=== PATIENT | male | born 1945 | race Caucasian/White ===

== ENCOUNTER → 2016-12-16 | Outpatient (CLI) | payer MEDICARE ==
[~2016-12-16] MED LIST: AUGMENTIN 875 M1 TAB PO; CLARITIN10 MG PO; DOXYCYCLINE100 M3 PO; PREDNISONE10 MG PO
[2016-12-16 08:58] LABS: BUN 23 mg/dl (7-24); CARBON DIOXIDE 30 mmol/L (21-32); CHLORIDE 105 mmol/L (98-107); CHOLESTEROL 159 mg/dL (<200); CPK 123 U/L (39-308); EST GLOM FILT AFRICAN AMERICAN > 60 ml/min; GLUCOSE 94 mg/dL (65-99); HDL CHOLESTEROL 45 mg/dl (40-60); LDL CHOLESTEROL 73 mg/dL (9-159); POTASSIUM 3.9 mmol/L (3.5-5.1); SODIUM 143 mmol/L (136-145); TRIGLYCERIDES 207 mg/dl (<150); VLDL CHOLESTEROL 41 mg/dL (6-40)
== END | disposition home or self-care (01) ==
LOC: LAB 07:37
PROVIDERS: Family Medicine
DX: I10 Essential (primary) hypertension (principal)

== ENCOUNTER → 2017-12-28 | Outpatient (CLI) | payer MEDICARE ==
[2017-12-28 08:25] LABS: BUN 22 mg/dl (7-24); CHLORIDE 104 mmol/L (98-107); CHOLESTEROL 159 mg/dL (<200); CREATININE 1.08 mg/dL (0.70-1.30); HDL CHOLESTEROL 40 mg/dl (40-60); LDL CHOLESTEROL 64 mg/dL (9-159); POTASSIUM 3.9 mmol/L (3.5-5.1); SODIUM 143 mmol/L (136-145); TRIGLYCERIDES 277 mg/dl (<150); VLDL CHOLESTEROL 55 mg/dL (6-40)
== END | disposition home or self-care (01) ==
LOC: LAB 07:42
PROVIDERS: Family Medicine
DX: I10 Essential (primary) hypertension (principal)

== ENCOUNTER 2018-01-22 09:58 | Emergency (ER) | payer MEDICARE ==
[~2018-01-22] VITALS: Wt 95.3 kg
[2018-01-22 09:58] VITALS: BP 164/81
[2018-01-22] MEDS ORDERED: MONTELUKAST SOD10 MG PO (10:01)
[2018-01-22] MEDS ORDERED: TRIAMTERENE-HC1 EACH PO (10:01)
[2018-01-22] MEDS ORDERED: FLOVENT DISKU250 MCG INH (10:02)
[2018-01-22] MEDS ORDERED: VIBRAMYCIN100 MG PO (10:13)
== END 2018-01-22 10:30 | disposition home or self-care (01) ==
LOC: ED 09:58
DX: S30.862A Insect bite (nonvenomous) of penis, initial encounter (principal); Z79.899 Other long term (current) drug therapy; Z88.2 Allergy status to sulfonamides; Z88.1 Allergy status to other antibiotic agents; W57.XXXA Bitten or stung by nonvenomous insect and other nonvenomous arthropods, initial encounter; Y93.89 Activity, other specified; Y92.89 Other specified places as the place of occurrence of the external cause; Y99.8 Other external cause status

== ENCOUNTER → 2018-11-29 | Outpatient (CLI) | payer MEDICARE ==
[~2018-11-29] MED LIST changes: +FLOVENT DISKU250 MCG INH; +MONTELUKAST SOD10 MG PO; +TRIAMTERENE-HC1 EACH PO; +VIBRAMYCIN100 MG PO
[2018-11-29 08:39] LABS: BUN 25 mg/dl (7-24); CHLORIDE 107 mmol/L (98-107); CHOLESTEROL 158 mg/dL (<200); CREATININE 1.13 mg/dL (0.70-1.30); POTASSIUM 3.6 mmol/L (3.5-5.1); SODIUM 142 mmol/L (136-145); TRIGLYCERIDES 180 mg/dl (<150); VLDL CHOLESTEROL 36 mg/dL (6-40)
[2018-11-29 08:40] LABS: HDL CHOLESTEROL 43 mg/dl (40-60); LDL CHOLESTEROL 79 mg/dL (9-159)
== END | disposition home or self-care (01) ==
LOC: LAB 07:35
PROVIDERS: Family Medicine
DX: I10 Essential (primary) hypertension (principal)

== ENCOUNTER → 2020-03-25 | Outpatient (CLI) | payer MEDICARE | END | disposition home or self-care (01) | LOC: LAB 09:02 | DX: N52.9 Male erectile dysfunction, unspecified (principal) ==

== ENCOUNTER → 2020-04-04 | Outpatient (CLI) | payer MEDICARE | END | disposition home or self-care (01) | LOC: LAB 08:53 | PROVIDERS: ATTEND Nurse Practitioner Family | DX: F52.21 Male erectile disorder (principal) ==

== ENCOUNTER → 2020-05-27 | Outpatient (CLI) | payer MEDICARE ==
[2020-05-27 09:03] LABS: BUN 18 mg/dl (7-24); CHLORIDE 106 mmol/L (98-107); CHOLESTEROL 177 mg/dL (<200); CREATININE 1.03 mg/dL (0.70-1.30); POTASSIUM 3.7 mmol/L (3.5-5.1); SODIUM 142 mmol/L (136-145); TRIGLYCERIDES 270 mg/dl (<150); VLDL CHOLESTEROL 54 mg/dL (6-40)
[2020-05-27 09:04] LABS: HDL CHOLESTEROL 42 mg/dl (40-60); LDL CHOLESTEROL 81 mg/dL (9-159)
== END | disposition home or self-care (01) ==
LOC: LAB 00:29
PROVIDERS: ATTEND Family Medicine
DX: I10 Essential (primary) hypertension (principal); E78.2 Mixed hyperlipidemia; R73.03 Prediabetes

== ENCOUNTER → 2020-12-18 | Outpatient (CLI) | payer MEDICARE ==
[2020-12-18 08:57] LABS: BUN 19 mg/dl (7-24); CHLORIDE 107 mmol/L (98-107); CHOLESTEROL 186 mg/dL (<200); CREATININE 1.06 mg/dL (0.70-1.30); LDL CHOLESTEROL 91 mg/dL (9-159); POTASSIUM 3.7 mmol/L (3.5-5.1); SODIUM 141 mmol/L (136-145); TRIGLYCERIDES 262 mg/dl (<150)
== END | disposition home or self-care (01) ==
LOC: LAB 08:00
PROVIDERS: ATTEND Family Medicine
DX: Z12.5 Encounter for screening for malignant neoplasm of prostate (principal); I10 Essential (primary) hypertension; E78.2 Mixed hyperlipidemia

== ENCOUNTER → 2021-04-07 | Outpatient (CLI) | payer MEDICARE | END | disposition home or self-care (01) | LOC: LAB 08:00 | PROVIDERS: ATTEND Nurse Practitioner Family | DX: M25.50 Pain in unspecified joint (principal); W57.XXXA Bitten or stung by nonvenomous insect and other nonvenomous arthropods, initial encounter ==

== ENCOUNTER → 2021-12-04 | Outpatient (CLI) | payer MEDICARE ==
[2021-12-04 08:36] LABS: BUN 20 mg/dl (7-24); CHLORIDE 108 mmol/L (98-107); CHOLESTEROL 160 mg/dL (<200); CREATININE 1.02 mg/dL (0.70-1.30); LDL CHOLESTEROL 71 mg/dL (9-159); POTASSIUM 3.7 mmol/L (3.5-5.1); SODIUM 141 mmol/L (136-145); TRIGLYCERIDES 250 mg/dl (<150)
== END | disposition home or self-care (01) ==
LOC: LAB 08:03
PROVIDERS: Family Medicine; ATTEND Nurse Practitioner Family
DX: I10 Essential (primary) hypertension (principal); E78.2 Mixed hyperlipidemia; R97.20 Elevated prostate specific antigen [PSA]

== ENCOUNTER → 2022-04-09 | Outpatient (CLI) | payer MEDICARE ==
[~2022-04-09] MED LIST changes: +FLONASE ALLERG9.9 ML NAS; -FLOVENT DISKU250 MCG INH; +FLOVENT DISKUS50 MCG INH
[2022-04-09 08:41] LABS: BUN 22 mg/dl (7-24); CHLORIDE 109 mmol/L (98-107); CREATININE 1.02 mg/dL (0.70-1.30); SODIUM 143 mmol/L (136-145)
== END | disposition home or self-care (01) ==
LOC: LAB 08:11
PROVIDERS: ATTEND Family Medicine
DX: I10 Essential (primary) hypertension (principal); R53.83 Other fatigue; Z79.899 Other long term (current) drug therapy

== ENCOUNTER → 2022-05-12 | Day surgery (SDC) | payer MEDICARE ==
[~2022-05-12] VITALS: Ht 172.7 cm; Wt 93.0 kg
[2022-05-12 12:59] VITALS: BP 158/73
[2022-05-12 14:25] VITALS: BP 144/76
[2022-05-12 14:40] VITALS: BP 146/82
[2022-05-12 14:54] VITALS: BP 148/78
== END | disposition home or self-care (01) ==
LOC: SDC 04-09 12:30
PROVIDERS: ATTEND Ophthalmology
DX: H25.812 Combined forms of age-related cataract, left eye (principal); I10 Essential (primary) hypertension; J45.909 Unspecified asthma, uncomplicated; Z87.891 Personal history of nicotine dependence; Z79.899 Other long term (current) drug therapy; Z98.890 Other specified postprocedural states

== ENCOUNTER → 2022-12-15 | Outpatient (CLI) | payer MEDICARE ==
[2022-12-15 09:53] LABS: BUN 19 mg/dl (9-23); CHLORIDE 106 mmol/L (98-107); CHOLESTEROL 157 mg/dL (<200); LDL CHOLESTEROL 84 mg/dL (9-159); POTASSIUM 3.9 mmol/L (3.4-5.1); TRIGLYCERIDES 153 mg/dl (<150)
== END | disposition home or self-care (01) ==
LOC: LAB 08:05
PROVIDERS: Family Medicine; ATTEND Nurse Practitioner Family
DX: I10 Essential (primary) hypertension (principal); R73.9 Hyperglycemia, unspecified

== ENCOUNTER → 2023-12-15 | Outpatient (CLI) | payer MEDICARE | END | disposition home or self-care (01) | LOC: LAB 07:47 | PROVIDERS: ATTEND Nurse Practitioner Family | DX: R97.20 Elevated prostate specific antigen [PSA] (principal) ==

== ENCOUNTER → 2024-02-02 | Outpatient (CLI) | payer MEDICARE ==
[2024-02-02 08:03] LABS: BASO # 0.1 10*3/uL (0.0-0.1); BASO % 1.2 % (0.0-1.0); EOS # 0.5 10*3/uL (0.0-0.4); EOS % 6.8 % (1.0-4.0); HEMATOCRIT 45.1 % (42.0-52.0); LYMPH # 1.6 10*3/uL (1.3-4.4); LYMPH % 24.4 % (27.0-41.0); MEAN CELL VOLUME 91.5 fl (80.0-94.0); MEAN CORPUSCULAR HGB 32.5 pg (27.0-31.0); MEAN CORPUSCULAR HGB CONC 35.5 g/dl (33.0-37.0); MEAN PLATELET VOLUME 9.9 fl (9.6-12.3); MONO # 0.7 10*3/uL (0.1-1.0); MONO % 10.1 % (3.0-9.0); NEUT # 3.8 10*3/uL (2.3-7.9); NEUT % 57.3 % (47.0-73.0); PLATELET COUNT AUTOMATED 165 10*3/uL (130-400); RED BLOOD COUNT 4.93 10*6/uL (4.50-5.90); WHITE BLOOD COUNT 6.6 10*3/uL (4.8-10.8)
[2024-02-02 08:39] LABS: ALKALINE PHOSPHATASE 66 U/L (46-116); BUN 22 mg/dl (9-23); CHLORIDE 108 mmol/L (98-107); CHOLESTEROL 166 mg/dL (<200); LDL CHOLESTEROL 90 mg/dL (9-159); POTASSIUM 3.7 mmol/L (3.4-5.1); SGPT/ALT 18 U/L (5-49); TOTAL PROTEIN 6.4 gm/dL (6.0-8.0); TRIGLYCERIDES 172 mg/dl (<150)
== END | disposition home or self-care (01) ==
LOC: LAB 07:45
PROVIDERS: ATTEND Internal Medicine
DX: I10 Essential (primary) hypertension (principal); R20.9 Unspecified disturbances of skin sensation; J44.9 Chronic obstructive pulmonary disease, unspecified; E78.5 Hyperlipidemia, unspecified

== ENCOUNTER → 2024-06-05 | Outpatient (CLI) | payer MEDICARE ==
[2024-06-05 08:22] LABS: BASO # 0.1 10*3/uL (0.0-0.1); BASO % 1.3 % (0.0-1.0); EOS # 0.2 10*3/uL (0.0-0.4); EOS % 3.1 % (1.0-4.0); HEMATOCRIT 47.4 % (42.0-52.0); LYMPH # 1.8 10*3/uL (1.3-4.4); LYMPH % 28.9 % (27.0-41.0); MEAN CELL VOLUME 92.8 fl (80.0-94.0); MEAN CORPUSCULAR HGB 31.7 pg (27.0-31.0); MEAN CORPUSCULAR HGB CONC 34.2 g/dl (33.0-37.0); MEAN PLATELET VOLUME 10.1 fl (9.6-12.3); MONO # 0.6 10*3/uL (0.1-1.0); MONO % 9.9 % (3.0-9.0); NEUT # 3.5 10*3/uL (2.3-7.9); NEUT % 56.5 % (47.0-73.0); PLATELET COUNT AUTOMATED 190 10*3/uL (130-400); RED BLOOD COUNT 5.11 10*6/uL (4.50-5.90); RED CELL DISTRI WIDTH 12.6 % (0-14.5); WHITE BLOOD COUNT 6.2 10*3/uL (4.8-10.8)
[2024-06-05 08:32] LABS: ALKALINE PHOSPHATASE 67 U/L (46-116); BUN 22 mg/dl (9-23); CHLORIDE 105 mmol/L (98-107); CHOLESTEROL 178 mg/dL (<200); LDL CHOLESTEROL 93 mg/dL (9-159); POTASSIUM 3.8 mmol/L (3.4-5.1); SGPT/ALT 22 U/L (5-49); TOTAL PROTEIN 6.7 gm/dL (6.0-8.0); TRIGLYCERIDES 206 mg/dl (<150)
== END | disposition home or self-care (01) ==
LOC: LAB 07:39
PROVIDERS: ATTEND Internal Medicine
DX: I10 Essential (primary) hypertension (principal); L98.9 Disorder of the skin and subcutaneous tissue, unspecified; E78.5 Hyperlipidemia, unspecified